=== PATIENT | female | born 1985 | race Asian ===

== ENCOUNTER 2018-11-07 13:32 | Inpatient (IN) | payer OTHER ==
[2018-11-07] VITALS (38 sets, daily range): BP systolic 111–203; BP diastolic 57–113
[~2018-11-07] VITALS: Ht 165.1 cm; Wt 94.2 kg
[2018-11-07] MEDS ORDERED: PRENTAB9 PO (13:51)
[2018-11-07] MEDS ORDERED: MAPA500T2 PO (13:51)
[2018-11-07] MEDS ORDERED: LR 1,000 ML IV SCH (17:07)
[2018-11-07] MEDS ORDERED: LACTATED RINGER'S 1000 ML IV STA (17:07)
[2018-11-07] MEDS ORDERED: FENTANYL 2MCG/ML ROPIVACAINE 0.2% IN 0.9% NACL 100ML IVBAG As Ordered ONE (17:24)
--- NOTE | 2018-11-07 17:30 | HPEPDOC ---
Obstetrical History & Physical General Date of Admission November 07, 2018 at 17:02 History of Present Illness Mercy is a 33yo with SIUP at 39w3d by lmp c/w 8wk u/s who presented tw o hours ago with consistent painful ctx. SCE at that time was 2-3cm, over 2 hours she has now progressed to 7cm. No LOF, no vaginal bleeding, feels good movement. 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 Past Medical History Medical History Overweight (BMI 28.8) Surgical History: [place]inch[place] teeth Family History Significant Family History: No pertinent family hx Social History Marital Status: Family situation: Spouse/partner home Psychosocial History: No pertinent psych hx * Smoker: non-smoker Alcohol: Denies Drugs: denies Imunizations Tdap status: current Influenza Status: current Allergies Coded Allergies: No Known Allergies (Unverified , 11/07/18) Medications Scheduled No.137/Iron/Folic Acd ( Vitamin Tablet) 1 Each Tablet, 1 TAB PO DAILY Miscellaneous Medications Acetaminophen (Mapap) 500 Mg Tablet, 1,000 MG PO Physical Examination Physical Examination GENERAL: Alert and oriented times three. ABDOMEN: Gravid and non-tender to touch. FETUS: Is vertex (VTX) by sterile vaginal examination (SVE) per RN EXTREMITIES: No edema of BLE Vital Signs/I&O Vital Signs Date Time Temp Pulse Resp B/P (MAP) Pulse Ox O2 Delivery O2 Flow Rate FiO2 11/07/18 13:47 99.7 89 18 121/73 (89) Laboratory Data [facility] Laboratory Tests 2 11/07/18 17:04: Serology Scanned Report Hepatitis B Testing Pertinent Laboratoy Data Blood Type: A+ RBC Antibody Screen: Negative HIV: Negative Hepatitis B: Negative Hepatitis C: Unknown Rapid Plasma Reagin: Nonreactive Rubella: Immune Varicella: Immune Chlamydia/Gonorrhea: Negative Group B Streptococcus: Negative Glucose Tolerance Test: 147 (88/166/146/101) Anatomy Ultrasound Ultrasound Date: Jun 23, 2018 Placenta Location: Anterior Normal Anatomy: Yes Placenta Previa: No Steroid Therapy Steroid Therapy: No Vaginal Examination Dilation: 7 cm Effacement: 80% Station: -2 Cervical Consistency: Soft Cervical Position: Middle Presentation: Cephalic presentation Assessment Heart Rate (FHR): 140 Variability: Minimal Accelerations: None Decelerations: Other (one recent late/prolonged FHR decel that self resolved) Tocometer Contractions: Yes Frequency: regular, every 2-5 min. Duration: greater than 60 seconds Strength: palpated as strong Assessment/Plan Assessment Mercy is a 33yo with SIUP at 39w3d by lmp c/w 8wk u/s admitted to L&D in active labor having made cervical change from 2-3cm to 7cm over the last 2hr. No ROM. Vitals overall wnl, benign exam. Cephalic by SCE per RN. GBS negative. Currently Cat II FHRT but was previously Cat I. course/PMhx significant for: A1GDM in prior with elevated 1hr glucola but normal 3hr GTT in this , overweight (BMI 28.8, 31lb weight gain), gestational thrombocytopenia (last plt 26Feb was 141) Plan Admit and orient. 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 Diet: clear liquids Group B Streptococcus (GBS) negative Labs and intravenous (IV) per unit protocol. Lactated Ringers (LR): Bolus 1000 mL, then at 125 mL/hr. Anticipate normal spontaneous delivery () Candidate for epidural as desired MD Marci Tirado Katrina D MD November 07, 2018 17:30
[2018-11-07 17:32] LABS: HEMATOCRIT 38.6 % (36.0-47.0); HEMOGLOBIN 13.4 g/dl (12.0-15.5); MEAN CORPUSCULAR HEMOGLOBIN 33.5 pg (27.0-33.0); MEAN CORPUSCULAR HGB CONC 34.7 g/dl (32.0-36.5); MEAN CORPUSCULAR VOLUME 96.5 fl (80.0-96.0); PLATELET COUNT, AUTOMATED 130 10^3/uL (150-450); WHITE BLOOD COUNT 10.8 10^3/uL (4.0-10.0)
[2018-11-07] MEDS ORDERED: NALOXONE INJ 0.4 MG/1 ML VIAL (J2310) IV PRN (18:30)
[2018-11-07] MEDS ORDERED: ePHEDrine SULFATE 25 MG/5 ML(5MG/ML) SYRINGE IV PRN (18:30)
[2018-11-07] MEDS ORDERED: EPIDURAL/PCA KEYS XX PRN (18:30)
[2018-11-07] MEDS ORDERED: EPIDURAL COMMENT XX SCH (18:30)
[2018-11-07] MEDS ORDERED: REFRIGERATOR IV KEYS XX PRN (18:30)
[2018-11-07] MEDS: FENTANYL/ROPIVACAINE/NACL BAG 100 ML EPIDURAL SCH (18:30)
[2018-11-07] MEDS ORDERED: LACTATED RINGER'S 1000 ML IV PRN (18:30)
[2018-11-07] MEDS ORDERED: diphenhydrAMINE INJ 50MG/ML VIAL (J1200) IV PRN (18:30)
[2018-11-07] MEDS ORDERED: ONDANSETRON 4MG/2ML VIAL (J2405) IV PRN (18:30)
[2018-11-07 20:28] LABS: ALT/SGPT 24 U/L (12-78); BILIRUBIN,TOTAL 0.3 MG/DL (0.2-1.0); BLOOD UREA NITROGEN 8 MG/DL (7-18); CALCIUM LEVEL 8.5 MG/DL (8.5-10.1); CARBON DIOXIDE LEVEL 18 MEQ/L (21-32); CHLORIDE LEVEL 111 MEQ/L (98-107); CREATININE FOR GFR 0.74 MG/DL (0.55-1.30); GLOMERULAR FILTRATION RATE > 60.0 (>60); GLUCOSE, FASTING 75 MG/DL (70-100); POTASSIUM SERUM 3.4 MEQ/L (3.5-5.1); SODIUM LEVEL 141 MEQ/L (136-145); TOTAL PROTEIN 6.2 GM/DL (6.4-8.2)
[2018-11-07] MEDS ORDERED: OXYTOCIN 30 UNITS IN 0.9% NaCl 500ML IV BAG (J2590) As Ordered ONE (21:37)
--- NOTE | 2018-11-07 21:42 | IPNPDOC ---
Text Note Date of Service The patient was seen on 11/07/18. NOTE Intrapartum Note Pt comfortable with epidural, starting to feel a bit of rectal pressure Vitals wnl, afebrile SCE: C/C/0, did practice pushes with 2 ctx, but had significant FHR decels and given no gain in station, will do passive descent Previously had Cat II FHRT with min floyd, but resolved to Cat I prior to practice pushes Will continue to closely monitor Passive descent x 1 hour then will begin pushing in earnest Safe to proceed Dr. Ivonne Covarrubias MD A-FIB/CHADSVAS A-FIB History Current/History of A-Fib/PAF?: No Current Oral Anticoagulant The: No VS,Fishbone, I+O VS, Fishbone, I+O Laboratory Tests 11/07/18 17:12 Red Blood Count 4.00, Mean Corpuscular Volume 96.5 H, Mean Corpuscular Hemoglobin 33.5 H, Mean Corpuscular Hemoglobin Concent 34.7, Red Cell Distribution Width 13.3, Calcium Level 8.5, Aspartate Amino Transf (AST/SGOT) 30, Alanine Aminotransferase (ALT/SGPT) 24, Alkaline Phosphatase 158 H, Total Bilirubin 0.3, Total Protein 6.2 L, Albumin 3.0 L Vital Signs Date Time Temp Pulse Resp B/P (MAP) Pulse Ox O2 Delivery O2 Flow Rate FiO2 11/07/18 21:10 110 113/58 (76) 11/07/18 18:52 97.7 18 Ivonne Covarrubias MD November 07, 2018 21:42
[2018-11-08] VITALS (9 sets, daily range): BP systolic 112–153; BP diastolic 64–94
[2018-11-08] MEDS ORDERED: OXYTOCIN DRIP 30 UNITS in APPROPRIATE DILUENT 1 EA IV SCH (00:36)
--- NOTE | 2018-11-08 00:43 | DNPDOC ---
[facility] Delivery Note Delivery Note DATE OF DELIVERY: 08 Nov 2018 PREDELIVERY DIAGNOSIS: 39w4d gestation and labor. POST DELIVERY DIAGNOSIS: Delivered. 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 Ivonne Covarrubias MD ANESTHESIA: epidural ESTIMATED BLOOD LOSS: 200 mL. FINDINGS: 8 pound 10 ounce (3900g) female , Score 8/9 DELIVERY SUMMARY: Mercy is a 33yo [id number] s/p uncomplicated at 39w4d after presenting in active labor, delivering at 00:19 on 08 Nov 2018. She presented at 3cm and changed to 7cm over 2hr, received an epidural and progressed to C/C/+1 at which point she began pushing. head delivered OA, restituted NICOLE. Right anterior shoulder delivered easily followed by posterior shoulder and corpus. Infant was vigorous with spontaneous cry noted, placed on maternal abdomen where nose and mouth were suctioned with bulb suction. After approximately 2 minutes, cord was clamped x2 and cut by me. Uterine massage was performed, traction on the umbilical cord, placenta delivered spontaneously and intact with 3 vessel peripherally inserted cord. IV pitocin was given per protocol, bimanual massage was performed and uterus then firm at u-2cm. Inspection of perineum and vagina revealed no lacerations. All counts correct x2. Total hemostasis assured. Mom and were doing well when I left the room. MD Marci Tirado Katrina D MD November 08, 2018 00:43
[2018-11-08] MEDS ORDERED: RHOGAM 300 MCG (1500 IU) INJ (J2790) IM SCH (00:45)
[2018-11-08] MEDS ORDERED: DIBUCAINE 1% OINTMENT 30GM TOP PRN (00:45)
[2018-11-08] MEDS ORDERED: ACETAMINOPHEN TAB 650MG DOSE (2X325MG) PO PRN (00:45)
[2018-11-08] MEDS ORDERED: MEASLES,MUMPS,RUBELLA VACCINE INJ (MMR-II) (90707) SC SCH (00:45)
[2018-11-08] MEDS ORDERED: DOCUSATE SODIUM 100 MG CAP PO PRN (00:45)
[2018-11-08] MEDS: IBUPROFEN 800 MG TAB PO PRN (01:11)
[2018-11-08] MEDS: ACETAMINOPHEN 500 MG TAB PO PRN ×4 (01:11→18:57)
[2018-11-08] MEDS: FENTANYL/ROPIVACAINE/NACL BAG 100 ML EPIDURAL SCH (04:30)
[2018-11-08] MEDS: PRENATAL VITAMINS CHEWABLE TABLET PO SCH (08:22)
[2018-11-08] MEDS: IBUPROFEN 600 MG TAB PO PRN ×3 (08:23→22:44)
[2018-11-09 06:05] VITALS: BP 120/76
[2018-11-09] MEDS ORDERED: DIBU10OI TOP (07:24)
[2018-11-09] MEDS ORDERED: ACET1TAB55 PO (07:24)
[2018-11-09] MEDS ORDERED: IBUP80TA PO (07:24)
[2018-11-09] MEDS ORDERED: COLA100C5 PO (07:24)
[2018-11-09] MEDS: PRENATAL VITAMINS CHEWABLE TABLET PO SCH (08:50)
[2018-11-09] MEDS: IBUPROFEN 800 MG TAB PO PRN (08:51)
--- NOTE | 2018-11-09 11:43 | DSES ---
DATE OF ADMISSION: 11/07/2018 DATE OF DISCHARGE: This lady is a 33-year-old, 2 now para 2 who came in at 39 and 3 weeks of gestation with painful contractions 2 to 3 minutes apart and in moderate pain. She had a spontaneous vaginal delivery of a live female infant 8 pounds 10 ounces, 3900 grams, scores of 8 and 9 at 1 and 5 minutes respectfully, epidural in place. She had no lacerations, tears or extensions. Uterus contracted well down under Pitocin. The patient and baby tolerated procedure well. On discharge, her blood pressure was 120/76, respirations 17, pulse 80, temperature 98.5. Her admitting hemoglobin was 13.4, hematocrit 38.6 and platelets were 130. We discussed phlebitis, cystitis, mastitis, endometritis, cellulitis, diet, exercise, pain management, perineal/breast/wound care. She is to make her 6-week checkup at [facility]. Her medications are dispensed at [facility]. The patient's questions were answered. She is planning on discharge today with the baby.
== END 2018-11-09 12:15 | disposition home or self-care (01) | DRG 807 ==
LOC: M LDO 13:32 → M LDI 17:02 → M OBS 11-08 02:51
PROVIDERS: ADMIT Obstetrics & Gynecology; ATTEND Obstetrics & Gynecology
PROC: 10E0XZZ Delivery of Products of Conception, External Approach (ICD-10-PCS; principal; 2018-11-08)
DX: O99.12 Other diseases of the blood and blood-forming organs and certain disorders involving the immune mechanism complicating childbirth (principal); Z37.0 Single live birth; Z3A.39 39 weeks gestation of pregnancy; D69.6 Thrombocytopenia, unspecified